=== PATIENT | male | born 1975 | race Caucasian/White ===

== ENCOUNTER 2018-08-23 14:28 | Emergency (ER) | payer OTHER ==
[2018-08-23] MEDS ORDERED: Fluorescein Opthalmic Strip ONE (14:45)
[2018-08-23] MEDS ORDERED: Cyclopentolate 1% Opth Drop 2 ML BOT ONE (15:09)
[2018-08-23] MEDS ORDERED: Neomycin-Polymyxin-Hc 7.5 ML BOT ONE ×2 (15:28→15:30)
== END 2018-08-23 15:35 | disposition home or self-care (01) ==
LOC: BURERS 14:28
DX: H10.9 Unspecified conjunctivitis (principal); F17.210 Nicotine dependence, cigarettes, uncomplicated
CPT/HCPCS: 99283

== ENCOUNTER 2019-04-16 14:23 | Emergency (ER) | payer BC, OTHER ==
[2019-04-16] MEDS ORDERED: predniSONE 20 MG TAB ONE (14:35)
== END 2019-04-16 14:40 | disposition home or self-care (01) ==
LOC: BURERS 14:23
DX: B86 Scabies (principal); R21 Rash and other nonspecific skin eruption; F17.210 Nicotine dependence, cigarettes, uncomplicated
CPT/HCPCS: 99282; J7512

== ENCOUNTER 2019-05-14 10:10 | Emergency (ER) | payer BC ==
[2019-05-14] MEDS ORDERED: Ketorolac Tromethamine 60 MG/2 ML VIAL ONE (10:41)
--- NOTE | 2019-05-14 21:41 | RAD ---
RIGHT RIBS WITH PA CHEST: 05/14/19 The chest film shows a normal sized heart and clear lungs. No infiltrate or effusion was seen. There is no vascular congestion or edema. No pneumothorax was seen. Regarding the right ribs, I did not see any fracture. The only area that was slightly questionable wa s the anterior costochondral end of the right sixth rib. Otherwise, all ribs appeared intact. IMPRESSION: No definite acute findings. See comments above. POS: HOME
== END 2019-05-14 11:08 | disposition home or self-care (01) ==
LOC: BURERS 10:10
DX: S20.211A Contusion of right front wall of thorax, initial encounter (principal); F17.210 Nicotine dependence, cigarettes, uncomplicated; W19.XXXA Unspecified fall, initial encounter
CPT/HCPCS: 96372; J1885

== ENCOUNTER → 2019-07-17 | Emergency (ER) | payer BC ==
--- NOTE | 2019-07-17 19:14 | RAD ---
LEFT HAND THREE VIEWS: 07/17/19 No fracture or periosteal reaction was seen. The carpals appear normal. The fourth MCP joint was unre markable. IMPRESSION: No acute findings. POS: HOME
== END ==
LOC: BURERS 16:48
DX: S63.657A Sprain of metacarpophalangeal joint of left little finger, initial encounter (principal); F32.9 Major depressive disorder, single episode, unspecified; F17.210 Nicotine dependence, cigarettes, uncomplicated; W18.30XA Fall on same level, unspecified, initial encounter

== ENCOUNTER 2020-05-30 18:13 | Observation (INO) | payer BC, OTHER, SELFPAY ==
[2020-05-30] MEDS ORDERED: Fentanyl 100 MCG/2 ML VIAL ONE (18:46)
[2020-05-30] MEDS ORDERED: Ketorolac Tromethamine 30 MG/ML VIAL ONE (18:47)
[2020-05-30] MEDS ORDERED: diphenhydrAMINE 50 MG/ML VIAL ONE (18:47)
[2020-05-30 19:08] LABS: #Basophils 0.2 thou/uL (0.0-0.2); #Eosinphils 0.7 thou/uL (0.0-0.7); #Lymphocytes 2.4 thou/uL (1.20-3.40); #Neutrophils 6.6 thou/uL (1.40-6.50); %Basophils 1.4 % (0.0-1.0); %Eosinophils 6.1 % (0.0-10.0); %Lymphocytes 22.2 % (21.0-51.0); %Neutrophils 61.2 % (42.0-75.0); Hemoglobin 15.5 g/dL (14.0-18.0); Mean Corpuscular HGB CONC 32.4 g/dL (32.0-36.0); Mean Corpuscular Hemoglobin 30.6 pg (27.0-31.0); Mean Corpuscular Volume 94.3 fL (78.0-98.0); Mean Platelet Volume 6.7 fL (7.4-10.4); Platelet Count 351 thou/uL (130-400); RBC Distribution Width 11.4 % (11.5-14.5); Red Blood Cell (RBC) Count 5.08 mill/uL (4.70-6.10); White Blood Cell (WBC) Count 10.8 thou/uL (4.8-10.8)
[2020-05-30] MEDS ORDERED: Cefepime 2 GM VIAL ONE ×2 (19:14→19:19)
[2020-05-30] MEDS ORDERED: Sodium Chloride 0.9% 100 ML ONE ×2 (19:14→19:19)
[2020-05-30 19:23] LABS: ALT (SGPT) 50 U/L (8-55); AST (SGOT) 29 U/L (5-34); Albumin 4.5 g/dL (3.5-5.0); Alkaline Phosphatase 72 U/L (40-110); Anion Gap 16 mmol/L (10-20); BUN (Urea Nitrogen) 17 mg/dL (8.9-20.6); Bilirubin, Total 0.4 mg/dL (0.2-1.2); Calc. Creatinine Clearance 0 mL/min (70-130); Calcium 9.4 mg/dL (7.8-10.44); Carbon Dioxide 25 mmol/L (22-29); Chloride 104 mmol/L (98-107); Estimated GFR-MDRD 64; Globulin 2.8 g/dL (2.4-3.5); Glucose 90 mg/dL (70-105); Potassium 4.7 mmol/L (3.5-5.1); Protein, Total 7.3 g/dL (6.0-8.3); Sodium 140 mmol/L (136-145)
[2020-05-30] MEDS ORDERED: Sulfameth/Trimethoprim DS 800-160mg TAB PO SCH (21:00)
[2020-05-30] MEDS ORDERED: HYDROcodone/Acetaminophen 5/325 mg Tablet PO PRN (21:30)
[2020-05-30] MEDS: HYDROcodone/Acetaminophen 5/325 mg Tablet PO PRN (21:39)
[2020-05-30 21:54] VITALS: BMI 33.2
[2020-05-30] MEDS ORDERED: Vancomycin HCl 1 GM in Sodium Chloride 0.9% 250 ML 250 ML IVPB SCH (22:15)
[2020-05-31] MEDS ORDERED: Vancomycin HCl 1 GM in Sodium Chloride 0.9% 250 ML 250 ML IVPB SCH (04:00)
[2020-05-31] MEDS: HYDROcodone/Acetaminophen 5/325 mg Tablet PO PRN ×4 (05:05→23:36)
[2020-05-31] MEDS: Vancomycin HCl 1 GM in Sodium Chloride 0.9% 250 ML 250 ML IVPB SCH ×3 (05:07→22:24)
--- NOTE | 2020-05-31 06:31 | RAD ---
RIGHT FOOT THREE VIEWS: 05/30/20 FINDINGS: No acute fracture is seen. The toes, metatarsals and tarsal joints all appear normal. There is no per iosteal reaction in the foot. Two of the views demonstrate an old ununited fracture of the medial malleolus. There appears to be a healed fracture of the distal fibula. IMPRESSION: 1. No acute findings in the foot. 2. 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 POS: HOME
--- NOTE | 2020-05-31 06:33 | RAD ---
AP PORTABLE CHEST: 05/30/20 1936 HOURS COMPARISON: 05/14/19 FINDINGS: The heart is normal in size and the lungs are clear. No infiltrate, effusion or vascular congestion i s seen. The mediastinum shows no acute change. The trachea is midline. IMPRESSION: No acute thoracic findings. POS: HOME
[2020-05-31] MEDS ORDERED: Acetaminophen 325 MG TAB PO PRN (08:08)
[2020-05-31 08:11] LABS: SARS-CoV-2 NAA Rapid Test Not Detected (NotDetected)
[2020-05-31] MEDS: Cefepime 2 GM in Sodium Chloride 0.9% 100 ML IVPB SCH ×2 (08:42→20:13)
[2020-05-31] MEDS: Ibuprofen 800 MG TAB PO PRN (08:46)
[2020-05-31] MEDS: Clotrimazole 1% Cream 15 GM TUBE TOP SCH (13:00)
[2020-05-31] MEDS ORDERED: cloNIDine 0.1mg/24 Hour PATCH TD SCH (20:00)
[2020-05-31] MEDS: DULoxetine 30 MG CAP PO SCH (20:21)
--- NOTE | 2020-05-31 20:38 | HP ---
CHIEF COMPLAINT: Right foot swelling and pain. HISTORY OF PRESENT ILLNESS: The patient is a 45-year-old white male who was in his usual state of health until Monday, 5 days prior to admission. The patient reports about midnight on Monday evening he got out of his chair after watching TV for several hours and stood on his right foot and felt swelling and slight discomfort. Over the next 24 hours, the swelling continued and discomfort increased. The following day, Monday, the patient went to the clinic in [place], diagnosed with cellulitis of the right foot and placed on Bactrim and Keflex. Over the next few days, the patient continued to have significant pain and swelling and presented to the emergency room on day of admission. The patient was diagnosed with cellulitis of the right foot as well as tinea pedis, failed outpatient treatment and required hospitalization with IV antibiotics. The patient reports no fevers, no chills. He denies any obvious trauma, but does say he walks a lot in his house barefoot, so he may have had some injury to the foot, but he does not remember. The patient reports appetite has been good without any recent weight loss nor weight gain. PAST MEDICAL HISTORY: The patient reports a history of some depression/aggression problems. No other significant past medical history. PAST SOCIAL HISTORY: The patient says he drinks socially several beers a day. He denies any other social drug use. He does smoke cigarettes about one pack per day. The patient is unemployed and lives otherwise independently. REVIEW OF SYSTEMS: The patient denies any visual changes. No recent rashes reported. No URI like symptoms. No recent chest pain. Has reports some occasional cough, which is not different from baseline. No fevers, chills, or night sweats. No nausea, vomiting, or diarrhea. No dysuria, hematuria, or change in urinary frequency. He does say he occasionally urinates in the evenings waking him up, but no other complaints. The patient denies depression. PHYSICAL EXAMINATION: GENERAL: White male, alert and oriented x3, in no obvious distress. VITAL SIGNS: The patient was afebrile, blood pressure was 121/76, pulse was 82, respiratory rate was 16, and O2 saturation was 96% on room air. HEENT: Atraumatic and normocephalic. Extraocular movements are intact. Pupils equal, round, and reactive to light and accommodation. Oropharynx; mucous membranes moist, poor dentition was noted. NECK: Supple. No masses palpated. CHEST: Clear to auscultation bilaterally. HEART: Regular rate and rhythm without murmurs, rubs, or gallops. ABDOMEN: Soft, nontender, and nondistended. No masses were palpated. EXTREMITIES: Multiple abrasions to the right foot. There was tinea pedis noted with peeling of the distal toes and callus formation in the plantar foot. There seemed to be several areas of cracking to the skin on the mid plantar foot. There was an area of crack with some dried blood around it, that area was the most intensely tender to palpation. There was a similar callus lesion a little bit more distal on the plantar foot as well. It was slightly uncomfortable. There was diffuse swelling throughout the entire foot and erythema with warmth to touch. There was no other bony tenderness noted. The swelling occurred from the distal foot all the way to the proximal ankle. Homans was negative. LABORATORY DATA: Significant for normal white count and normal electrolytes. The patient had an x-ray of the right foot, which showed old ankle fracture, but no other significant abnormalities. A chest x-ray was performed, which was normal as well. Lactic acid was 1.3. Blood sugar was 90, nonfasting. C-reactive protein was less than 0.5. ASSESSMENT: Cellulitis, right lower extremity foot. Failed outpatient treatment. The patient will be admitted to the floor. He will be placed on IV antibiotics including IV cefepime and IV vancomycin. He will be started on topical antifungal cream and he will stay off the foot as much as possible while it is being treated. DISPOSITION: Plan is for the patient to be discharged to home. Hopefully, he can be home within the next 36 to 48 hours. He will be admitted to observation. All questions were answered. Job ID: [id number]
[2020-05-31 21:46] LABS: Vancomycin, Trough 8.6 ug/mL
[2020-05-31] MEDS: Vancomycin HCl 500 MG in Sodium Chloride 0.9% 100 ML IVPB SCH (23:32)
[2020-06-01 05:16] LABS: #Basophils 0.1 thou/uL (0.0-0.2); #Eosinphils 0.7 thou/uL (0.0-0.7); #Lymphocytes 1.9 thou/uL (1.20-3.40); #Monocytes 0.6 thou/uL (0.11-0.59); #Neutrophils 3.5 thou/uL (1.40-6.50); %Basophils 1.5 % (0.0-1.0); %Eosinophils 10.5 % (0.0-10.0); %Lymphocytes 27.7 % (21.0-51.0); %Monocytes 9.2 % (0.0-10.0); %Neutrophils 51.1 % (42.0-75.0); Hemoglobin 13.8 g/dL (14.0-18.0); Mean Corpuscular HGB CONC 31.2 g/dL (32.0-36.0); Mean Corpuscular Hemoglobin 29.9 pg (27.0-31.0); Mean Corpuscular Volume 95.8 fL (78.0-98.0); Mean Platelet Volume 6.2 fL (7.4-10.4); Platelet Count 309 thou/uL (130-400); RBC Distribution Width 11.3 % (11.5-14.5); Red Blood Cell (RBC) Count 4.62 mill/uL (4.70-6.10); White Blood Cell (WBC) Count 6.8 thou/uL (4.8-10.8)
[2020-06-01] MEDS: Vancomycin HCl 1 GM in Sodium Chloride 0.9% 250 ML 250 ML IVPB SCH ×2 (05:36→13:48)
[2020-06-01] MEDS: HYDROcodone/Acetaminophen 5/325 mg Tablet PO PRN ×3 (05:37→20:40)
[2020-06-01] MEDS: Vancomycin HCl 500 MG in Sodium Chloride 0.9% 100 ML IVPB SCH ×2 (06:59→15:19)
[2020-06-01] MEDS: Ibuprofen 800 MG TAB PO PRN (08:57)
[2020-06-01] MEDS: DULoxetine 30 MG CAP PO SCH ×2 (08:57→20:42)
[2020-06-01] MEDS: Cefepime 2 GM in Sodium Chloride 0.9% 100 ML IVPB SCH ×2 (08:58→20:39)
[2020-06-01] MEDS ORDERED: Ketoconazole 2% Cream 15 gm Tube TOP SCH (09:00)
[2020-06-01] MEDS: Clotrimazole 1% Cream 15 GM TUBE TOP SCH (09:00)
[2020-06-01] MEDS: Albuterol 200 PUFF (6.7GM INHALER) INH PRN ×2 (12:00→16:14)
[2020-06-01 21:56] LABS: Vancomycin, Trough 10.6 ug/mL
[2020-06-02] MEDS: Vancomycin HCl 1 GM in Sodium Chloride 0.9% 250 ML 250 ML IVPB SCH ×3 (00:29→13:50)
[2020-06-02] MEDS: Vancomycin HCl 500 MG in Sodium Chloride 0.9% 100 ML IVPB SCH ×3 (00:31→14:38)
[2020-06-02] MEDS: Ibuprofen 800 MG TAB PO PRN (00:36)
[2020-06-02] MEDS: HYDROcodone/Acetaminophen 5/325 mg Tablet PO PRN ×3 (02:53→14:37)
[2020-06-02] MEDS: Albuterol 200 PUFF (6.7GM INHALER) INH PRN (02:53)
[2020-06-02] MEDS ORDERED: Cefepime 2 GM VIAL ONE (07:25)
[2020-06-02] MEDS: DULoxetine 30 MG CAP PO SCH (08:49)
[2020-06-02] MEDS: Cefepime 2 GM in Sodium Chloride 0.9% 100 ML IVPB SCH (08:51)
[2020-06-02] MEDS ORDERED: Ketoconazole 2% Cream 15 gm Tube TOP SCH ×2 (09:00→14:45)
[2020-06-02] MEDS ORDERED: Albuterol 200 PUFF (6.7GM INHALER) INH SCH (14:32)
[2020-06-02 17:37] VITALS: BP 131/88; TEMP 98.1
== END 2020-06-02 18:45 | disposition home or self-care (01) ==
LOC: BURERS 18:16 → BURMED 19:45
PROVIDERS: ADMIT Family Medicine; ATTEND Family Medicine
DX: L03.115 Cellulitis of right lower limb (principal); B35.3 Tinea pedis; F32.9 Major depressive disorder, single episode, unspecified; F17.210 Nicotine dependence, cigarettes, uncomplicated; Z79.2 Long term (current) use of antibiotics; Z79.899 Other long term (current) drug therapy; Z20.828 Contact with and (suspected) exposure to other viral communicable diseases
CPT/HCPCS: 36415; 36416; 71045; 80053; 80202; 83605; 85025; 86140; 87040; 96365; 96366; 96367; 96375; 96376; G0378; J0692; J1200; J1885; J3010; J3370; J3490; J7050; U0002

== ENCOUNTER 2021-03-10 10:31 | Emergency (ER) | payer SELFPAY ==
[2021-03-10] MEDS ORDERED: Metoclopramide HCl 10 MG TAB ONE (11:06)
[2021-03-10] MEDS ORDERED: diphenhydrAMINE 25 MG CAP ONE (11:06)
[2021-03-10] MEDS ORDERED: Ketorolac Tromethamine 30 MG/ML VIAL ONE (11:06)
== END 2021-03-10 11:40 | disposition home or self-care (01) ==
LOC: BURERS 10:31
DX: J01.90 Acute sinusitis, unspecified (principal); F17.210 Nicotine dependence, cigarettes, uncomplicated
CPT/HCPCS: 70450; 96372; J1885; Q0163

== ENCOUNTER 2021-09-27 11:24 | Emergency (ER) | payer SELFPAY ==
[2021-09-27] MEDS ORDERED: Ibuprofen 200 MG TAB ONE (12:36)
[2021-09-28 11:50] LABS: SARS-CoV-2 PCR by NAA Not Detected (NotDetected)
== END 2021-09-27 12:43 | disposition home or self-care (01) ==
LOC: BURERS 11:24
DX: B34.9 Viral infection, unspecified (principal); F17.210 Nicotine dependence, cigarettes, uncomplicated; Z20.822 Contact with and (suspected) exposure to COVID-19
CPT/HCPCS: 87804; 99284; U0003; U0005

== ENCOUNTER 2023-05-09 10:13 | Emergency (ER) | payer SELFPAY ==
[2023-05-09] MEDS ORDERED: Ketorolac Tromethamine 60 MG/2 ML VIAL ONE (11:23)
[2023-05-09] MEDS ORDERED: Nitroglycerin 0.4 MG TAB 1 EACH ONE (14:04)
== END 2023-05-09 12:32 | disposition home or self-care (01) ==
LOC: BURERS 10:13
DX: M23.92 Unspecified internal derangement of left knee (principal); F17.210 Nicotine dependence, cigarettes, uncomplicated
CPT/HCPCS: 96372; J1885

== ENCOUNTER 2023-06-19 09:59 | Outpatient (CLI) | payer OTHER | END 2023-06-19 10:00 | disposition home or self-care (01) | LOC: BURRAD 09:59 | PROVIDERS: ATTEND Family Medicine | DX: M25.562 Pain in left knee (principal) ==

== ENCOUNTER 2024-03-11 08:24 | Outpatient (CLI) | payer OTHER | END 2024-03-11 08:25 | disposition home or self-care (01) | LOC: BURRAD 08:24 | PROVIDERS: ATTEND Nurse Practitioner Family | DX: M54.6 Pain in thoracic spine (principal); M54.50 Low back pain, unspecified; S22.080A Wedge compression fracture of T11-T12 vertebra, initial encounter for closed fracture; M47.814 Spondylosis without myelopathy or radiculopathy, thoracic region; M47.816 Spondylosis without myelopathy or radiculopathy, lumbar region | CPT/HCPCS: 72072; 72100 ==

== ENCOUNTER 2024-08-18 07:25 | Emergency (ER) | payer OTHER ==
[2024-08-18] MEDS ORDERED: HYDROcodone/Acetaminophen 10/325 mg Tablet ONE (07:47)
[2024-08-18] MEDS ORDERED: Ibuprofen 200 MG TAB ONE (07:47)
[2024-08-18] MEDS ORDERED: Acetaminophen 325 MG TAB ONE (07:47)
[2024-08-18] MEDS ORDERED: Ondansetron ODT 4 MG TAB ONE (07:47)
== END 2024-08-18 09:03 | disposition home or self-care (01) ==
LOC: BURERS 07:25
DX: S29.011A Strain of muscle and tendon of front wall of thorax, initial encounter (principal); F10.10 Alcohol abuse, uncomplicated; K76.0 Fatty (change of) liver, not elsewhere classified; F17.210 Nicotine dependence, cigarettes, uncomplicated; W22.8XXA Striking against or struck by other objects, initial encounter
CPT/HCPCS: 71250; Q0162

== ENCOUNTER 2025-05-13 08:29 | Emergency (ER) | payer BC, OTHER ==
[2025-05-13] MEDS ORDERED: predniSONE 20 MG TAB ONE (10:04)
== END 2025-05-13 10:06 | disposition home or self-care (01) ==
LOC: BURERS 08:29
DX: J06.9 Acute upper respiratory infection, unspecified (principal); J44.9 Chronic obstructive pulmonary disease, unspecified; F17.210 Nicotine dependence, cigarettes, uncomplicated
CPT/HCPCS: 71045; 87428; J7512; J7620

== ENCOUNTER 2025-07-11 06:26 | Emergency (ER) | payer BC, OTHER ==
[2025-07-11] MEDS ORDERED: Ibuprofen 800 MG TAB ONE (07:03)
[2025-07-11 08:15] LABS: #Basophils 0.2 thou/uL (0.0-0.2); #Eosinophils 0.2 thou/uL (0.0-0.7); #Lymphocytes 1.7 thou/uL (1.20-3.40); #Monocytes 0.5 thou/uL (0.11-0.59); #Neutrophils 7.0 thou/uL (1.40-6.50); %Basophils 2.1 % (0.0-1.0); %Eosinophils 1.8 % (0.0-10.0); %Lymphocytes 17.8 % (21.0-51.0); %Monocytes 4.8 % (0.0-10.0); %Neutrophils 73.4 % (42.0-75.0); Hematocrit 45.4 % (42.0-52.0); Hemoglobin 15.4 g/dL (14.0-18.0); Mean Corpuscular Hemoglobin 30.6 pg (27.0-31.0); Mean Corpuscular Volume 90.0 fl (78.0-98.0); Platelet Count 412 10x3/uL (130-400); Red Blood Cell (RBC) Count 5.04 mill/uL (4.70-6.10); White Blood Cell (WBC) Count 9.5 10x3/uL (4.8-10.8)
[2025-07-11 08:30] LABS: ALT (SGPT) 21 U/L (Less than 45); AST (SGOT) 22 U/L (11-34); Albumin 4.1 g/dL (3.1-4.5); Alkaline Phosphatase 71 U/L (40-110); Anion Gap 15 mmol/L (10-20); BUN (Urea Nitrogen) 8 mg/dL (8.9-20.6); Bilirubin, Total 0.5 mg/dL (0.3-1.2); CK (CPK) 66 U/L (30-200); Calc. Creatinine Clearance 0 mL/min (70-130); Calcium 9.7 mg/dL (7.8-10.44); Carbon Dioxide 23 mmol/L (22-29); Chloride 107 mmol/L (98-107); Globulin 3.1 g/dL (2.4-3.5); Glucose 123 mg/dL (70-105); Potassium 3.9 mmol/L (3.5-5.1); Sodium 141 mmol/L (136-145)
== END 2025-07-11 08:59 | disposition home or self-care (01) ==
LOC: BURERS 06:26
DX: M79.10 Myalgia, unspecified site (principal); J44.9 Chronic obstructive pulmonary disease, unspecified; F17.210 Nicotine dependence, cigarettes, uncomplicated
CPT/HCPCS: 36415; 80053; 82550; 85025; 87428